=== PATIENT | male | born 1970 | race Caucasian/White ===

== ENCOUNTER 2017-05-19 10:34 | Emergency (ER) | payer BC ==
[2017-05-19 11:09] LABS: BASOPHILS 0.2 % (0-2); EOSINOPHILS 0.7 % (0-7); HEMATOCRIT 46.8 % (42.0-54.0); HEMOGLOBIN 16.1 g/dL (13.5-17.5); IMMATURE GRANULOCYTES 0.3 % (0-5); LYMPHOCYTES 20.6 % (15-50); MCH 32.7 pg (26.0-34.0); MCHC 34.4 g/dL (31.0-37.0); MCV 95.1 fL (80.0-100.0); MEAN PLATELET VOLUME 10.2 fL (7.4-10.4); MONOCYTES 10.4 % (2-11); NEUTROPHILS 67.8 % (40-80); PLATELET COUNT 303 10x3/uL (130-400); RBC 4.92 10x6/uL (4.20-6.10); RDW 12.7 % (11.5-14.5); WBC 10.1 10x3/uL (4.8-10.8)
[2017-05-19 11:27] LABS: ALBUMIN 3.7 g/dL (3.4-5.0); ALKALINE PHOSPHATASE 82 U/L (46-116); ALT (SGPT) 28 U/L (10-68); CALC OSMOLALITY 279 mosm/kg (275-300); CALCIUM 9.2 mg/dL (8.5-10.1); CHLORIDE - SERUM 104 mmol/L (98-107); GLUCOSE 93 mg/dL (74-106); POTASSIUM - SERUM 4.4 mmol/L (3.5-5.1); PROTEIN - SERUM 7.4 g/dL (6.4-8.2); SODIUM 141 mmol/L (136-145); UREA NITROGEN 9 mg/dL (7-18); eGFR NON AFRICAN AMERICAN 86 mL/min (90-120)
[2017-05-19 11:42] LABS: CHOL - HDL RATIO 5.3 ratio (2.3-4.9); CHOLESTEROL, TOTAL 218 mg/dL (0-200); CKMB 1.9 U/L (0.0-3.6); CREATINE KINASE 249 UL (21-232); HDL CHOLESTEROL 41 mg/dL (32-96); LDL CHOLESTEROL 149 mg/dL (0-100); LDL-HDL RATIO 3.6 ratio (1.5-3.5); TRIGLYCERIDE 140 mg/dL (30-200)
[2017-05-19 11:43] LABS: TROPONIN-I 0.081 ng/mL (0.000-0.060)
--- NOTE | 2017-05-20 09:51 | CN ---
PATIENT NAME:LIMA DANIEL MEDICAL RECORD: [id number] : 74 LOCATION:ER ADMIT DATE: ACCOUNT: [id number] CONSULTING PHYSICIAN: TERRI LEDEZMA MD REFERRING PHYSICIAN: PÉREZ WILKINSON MD DATE OF CONSULTATION: 05/19/2017 Cardiology Consult DIAGNOSES: 1. Non-Q-wave myocardial infarction. 2. Coronary artery disease. HISTORY OF PRESENT ILLNESS: This is a gentleman who presents with 6 weeks of increasing episodes of chest pain, chest discomfort compatible with angina. His troponin is positive. He is from the [place], [place] area and wants nothing done here, wants to go back home, [place] to have anything done. His chest pain worsened today. PHYSICAL EXAMINATION: GENERAL APPEARANCE: Well-nourished, well-developed, appears stated age. Level of distress, comfortable. PSYCHIATRIC: Mental status, alert, normal affect. Orientation, oriented to time, place and person. EYES: Lids and conjunctiva, noninjected. No discharge, no pallor. ENT: Lips, teeth, gums, normal dentition. Oropharynx, no cyanosis, no pallor. NECK: Carotid arteries, bilateral normal upstroke, no bruits, no thrills. JUGULAR VEINS: No jugular venous pressure or distention. CERVICAL LYMPH NODES: Nontender, nonenlarged. THYROID: Not enlarged. Nontender. No nodules. LUNGS: Respiratory effort, unlabored. CHEST: Normal curvature. No thoracic deformity. No chest wall tenderness. Percussion, resonant. Auscultation, clear. No wheezes, no rales, no rhonchi. CARDIOVASCULAR: Precordial exam, nondisplaced. No heaves or pericardial thrills. Rate and rhythm, regular. Heart sounds, normal S1, normal S2. No S3, no gallop, no rub. Systolic murmur, not heard. Diastolic murmur, not heard. EXTREMITIES: No cyanosis, no edema. Peripheral pulses, full and equal in all extremities, except as noted. No bruits appreciated. ABDOMEN: Soft, nondistended. Normal aorta. No bruit. Nontender. No masses. Liver, nontender, no hepatomegaly. Spleen, nontender, no splenomegaly. MUSCULOSKELETAL: No joint tenderness. No joint swelling. No erythema. NEUROLOGICAL: Normal gait, normal strength, normal tone. SKIN: Warm and dry. OVERALL IMPRESSION: This time, clearly he has hemodynamically significant coronary artery disease. His EKG is with no acute ST-T abnormalities. We will place him on low dose beta-bell, statin, aspirin, and Plavix. We tried to get him to stay here for coronary angiography and intervention; however, he does not want to stay here at all, wants only to go back [place] for this. Hopefully he will do well with medical therapy before going back to [place]. TRANSINT:[id number] Voice Confirmation ID: [id number] DOCUMENT ID: [id number] CONSULT REPORT [id number] LIMA DANIEL, TERRI BRUSH at 0951 CC: [id number] DICTATION DATE: 05/19/17 1149 ASSEMBLER DC FIELD RING: 05/19/17 1731 DEP ER 05/19/[address] [address]
== END 2017-05-19 12:08 | disposition home or self-care (01) ==
LOC: D.ER 10:34
PROVIDERS: Emergency Medicine
DX: R07.9 Chest pain, unspecified (principal); I10 Essential (primary) hypertension; K21.9 Gastro-esophageal reflux disease without esophagitis; F17.200 Nicotine dependence, unspecified, uncomplicated